=== PATIENT | female | born 1990 | race Caucasian/White ===

== ENCOUNTER 2016-08-05 12:29 | Inpatient (IN) | payer OTHER ==
[~2016-08-05] VITALS: Ht 165.1 cm; Wt 64.5 kg
[~2016-08-05 12:29] MED LIST: ASCORBIC ACID500 M1 PO; ORTHO TRI-CYCL1 EACH PO; PHENERGAN25 MG PR; TRAZODONE HCL50 MG PO
[2016-08-05 13:15] LABS: EOSINOPHIL (%) 1.1 % (0-5); EOSINOPHIL COUNT 0.1 K/uL (0-0.3); HEMATOCRIT 41.3 % (36.0-46.0); IMMATURE GRANULOCYTE (%) 0.6 % (0.0-0.7); IMMATURE GRANULOCYTE COUNT 0.1 K/uL; INSTRUMENT ABS NEUTROPHIL CT 5.2 K/uL; LYMPHOCYTE COUNT 2.6 K/uL (1.0-2.8); MCH 29.7 PG (29.0-34.0); MCHC 33.4 G/DL (30.0-36.0); MCV 88.8 FL (83-99); MEAN PLAT.VOLUME 9.3 uM^3 (9.5-12.4); MONOCYTE (%) 5.5 % (3-12); MONOCYTE COUNT 0.5 K/uL (0-0.8); NEUTROPHIL (%) 61.3 % (45-76); NEUTROPHIL COUNT 5.2 K/uL (1.8-6.4); PLATELET COUNT 334 K/uL (156-360); RBC DIS.WIDTH-CV 12.3 % (11.8-14.6); RBC DIS.WIDTH-SD 39.7 % (39-53); RED BLOOD COUNT 4.65 M/uL (3.80-5.20); WHITE BLOOD COUNT 8.4 K/uL (4.1-10.2)
[2016-08-05 13:25] LABS: CHLORIDE 107 mEq/L (99-109); POTASSIUM 4.4 mEq/L (3.7-5.4); SODIUM 142 mEq/L (136-147)
[2016-08-05 13:26] LABS: GLUCOSE 78 mg/dL (70-99)
[2016-08-05 13:28] LABS: ANION GAP 11 MEQ/L (2-14)
[2016-08-05 13:29] LABS: SERUM ETHYL ALCOHOL 51 mg/dL
[2016-08-05 13:30] LABS: GFR ESTIMATE (CALCULATED) > 59 mL/min/
[2016-08-05 13:31] LABS: UREA NITROGEN (BUN) 7 mg/dL (9-23)
[2016-08-05 13:45] LABS: QUANTITATIVE HCG < 4.0 MIU/ML
[2016-08-05 14:34] LABS: ADD MIUA? YES; BILIRUBIN NEGATIVE; BLOOD NEGATIVE; COLOR YELLOW ((YELLOW)); GLUCOSE (STRIP) NEGATIVE; KETONES NEGATIVE; LEUKOCYTES NEGATIVE; NITRITE NEGATIVE; PROTEIN (STRIP) NEGATIVE; SPECIFIC GRAVITY 1.017 (1.000-1.030); UROBILINOGEN 0.2 MG/DL (0.2-1.0)
[2016-08-05 14:47] LABS: AMPHETAMINE NEGATIVE (500 ng/mL); BARBITURATES NEGATIVE (200 ng/mL); BENZODIAZEPINES NEGATIVE (150 ng/mL); COCAINE NEGATIVE (150 ng/mL); INTERNAL CONTROLS VALID? YES; METHADONE NEGATIVE (200 ng/mL); METHAMPHETAMINE NEGATIVE (500 ng/mL); OPIATES (MORPHINE) NEGATIVE (100 ng/mL); OXYCODONE NEGATIVE (100 ng/mL); PHENCYCLIDINE NEGATIVE (25 ng/mL); PROPOXYPHENE NEGATIVE (300 ng/mL); THC CANNABINOIDS PRESUMPTIVE POSITIVE (50 ng/mL); TRICYCLIC ANTIDEPRESSANTS NEGATIVE (300 ng/mL)
[2016-08-05 14:48] LABS: ADD MEDTOX COMMENT Y
[2016-08-05 14:54] LABS: BACTERIA NONE SEEN /HPF; EPITHELIAL CELLS RARE /HPF; MUCUS TRACE /LPF; RED BLOOD CELLS 0-5 /HPF (0-5); WHITE BLOOD CELLS 0-5 /HPF (0-5)
[2016-08-05] MEDS ORDERED: ASCORBIC ACID500 M3 PO (14:59)
[2016-08-05 15:01] LABS: CASTS NONE SEEN /LPF; CRYSTALS NONE SEEN
[2016-08-05 16:39] VITALS: BP 144/78
[2016-08-06 09:34] VITALS: BP 127/66
[2016-08-06 15:56] VITALS: BP 117/63
[2016-08-07 08:05] VITALS: BP 122/68
[2016-08-07] MEDS ORDERED: SERTRALINE HCL50 MG PO (09:43)
== END 2016-08-07 13:28 | disposition home or self-care (01) | DRG 885 ==
LOC: EME 12:29 → EDOF 14:20 → 1WEST 14:20
PROVIDERS: Emergency Medicine
DX: F33.2 Major depressive disorder, recurrent severe without psychotic features (principal); R45.851 Suicidal ideations; Y90.2 Blood alcohol level of 40-59 mg/100 ml; F10.20 Alcohol dependence, uncomplicated; S61.512A Laceration without foreign body of left wrist, initial encounter; S61.511A Laceration without foreign body of right wrist, initial encounter; X78.1XXA Intentional self-harm by knife, initial encounter; F41.0 Panic disorder [episodic paroxysmal anxiety]; F12.90 Cannabis use, unspecified, uncomplicated; Z62.810 Personal history of physical and sexual abuse in childhood; Z91.410 Personal history of adult physical and sexual abuse; F17.210 Nicotine dependence, cigarettes, uncomplicated; Y92.9 Unspecified place or not applicable; Y93.E8 Activity, other personal hygiene
CPT/HCPCS: 80048; 81003; 84702; 84999; 85025; 90837; 99281; 99284; G0480; Q0177

== ENCOUNTER 2017-07-07 19:18 | Inpatient (IN) | payer OTHER ==
[~2017-07-07] VITALS: Ht 165.1 cm; Wt 69.5 kg
[~2017-07-07 19:18] MED LIST changes: +ASCORBIC ACID500 M3 PO; +SERTRALINE HCL50 MG PO
[2017-07-07 19:37] LABS: HEMOGLOBIN 13.9 G/DL (11.9-15.5); MCH 31.3 PG (29.0-34.0); MCHC 35.6 G/DL (30.0-36.0); MCV 87.8 FL (83-99); PLATELET COUNT 355 K/uL (156-360); RBC DIS.WIDTH-CV 12.5 % (11.8-14.6); RBC DIS.WIDTH-SD 40.3 % (39-53); RED BLOOD COUNT 4.44 M/uL (3.80-5.20); WHITE BLOOD COUNT 16.3 K/uL (4.1-10.2)
[2017-07-07 19:45] LABS: CHLORIDE 108 mEq/L (99-109); POTASSIUM 4.1 mEq/L (3.7-5.4); SODIUM 139 mEq/L (136-147)
[2017-07-07 19:47] LABS: GLUCOSE 117 mg/dL (70-99)
[2017-07-07 19:50] LABS: SERUM ETHYL ALCOHOL 201 mg/dL
[2017-07-07 19:51] LABS: CREATININE 0.9 mg/dL (0.6-1.3); GFR ESTIMATE (CALCULATED) > 59 mL/min/
[2017-07-07 19:53] LABS: UREA NITROGEN (BUN) 11 mg/dL (9-23)
[2017-07-07 19:54] LABS: ACETAMINOPHEN (TYLENOL) < 10 mcg/mL (10-30); SALICYLATE < 5.0 MG/DL (15-30)
[2017-07-07 21:03] LABS: AMPHETAMINE NEGATIVE (500 ng/mL); BARBITURATES NEGATIVE (200 ng/mL); BENZODIAZEPINES NEGATIVE (150 ng/mL); BUPRENORPHINE NEGATIVE (10 ng/mL); COCAINE NEGATIVE (150 ng/mL); METHADONE NEGATIVE (200 ng/mL); METHAMPHETAMINE NEGATIVE (500 ng/mL); OPIATES (MORPHINE) NEGATIVE (100 ng/mL); OXYCODONE NEGATIVE (100 ng/mL); PHENCYCLIDINE NEGATIVE (25 ng/mL); PROPOXYPHENE NEGATIVE (300 ng/mL); THC CANNABINOIDS NEGATIVE (50 ng/mL); TRICYCLIC ANTIDEPRESSANTS NEGATIVE (300 ng/mL)
[2017-07-08 03:44] VITALS: BP 136/82
[2017-07-08 08:07] VITALS: BP 119/58
[2017-07-08 16:20] VITALS: BP 154/79
[2017-07-09 07:46] VITALS: BP 120/67
[2017-07-09 15:45] VITALS: BP 139/68
[2017-07-10 07:32] VITALS: BP 133/76
[2017-07-10 15:36] VITALS: BP 105/65
[2017-07-11 07:30] VITALS: BP 119/65
[2017-07-11 15:37] VITALS: BP 133/66
[2017-07-12 07:47] VITALS: BP 106/59
[2017-07-12] MEDS ORDERED: FLUOXETINE HCL20 MG PO (09:35)
[2017-07-12] MEDS ORDERED: OLANZAPINE5 MG PO (09:35)
[2017-07-12] MEDS ORDERED: NALTREXONE HCL50 MG PO (09:37)
== END 2017-07-12 14:18 | disposition home or self-care (01) | DRG 876 ==
LOC: EME 19:18 → EDOF 07-08 00:43 → 1WEST 07-08 00:43 → ENRESERV 07-08 00:57 → 1WEST 07-08 03:29
PROVIDERS: Emergency Medicine
DX: F33.2 Major depressive disorder, recurrent severe without psychotic features (principal); F10.24 Alcohol dependence with alcohol-induced mood disorder; R45.851 Suicidal ideations; X78.8XXA Intentional self-harm by other sharp object, initial encounter; S61.512A Laceration without foreign body of left wrist, initial encounter; S41.112A Laceration without foreign body of left upper arm, initial encounter; S60.819A Abrasion of unspecified wrist, initial encounter; Y90.7 Blood alcohol level of 200-239 mg/100 ml; F10.229 Alcohol dependence with intoxication, unspecified; F17.210 Nicotine dependence, cigarettes, uncomplicated; F60.3 Borderline personality disorder; R45.850 Homicidal ideations; F41.9 Anxiety disorder, unspecified; Z62.810 Personal history of physical and sexual abuse in childhood; F12.10 Cannabis abuse, uncomplicated; Z91.5 Personal history of self-harm; Z78.1 Physical restraint status; Z59.0 Homelessness; Z91.14 Patient's other noncompliance with medication regimen; Z91.410 Personal history of adult physical and sexual abuse; Y92.009 Unspecified place in unspecified non-institutional (private) residence as the place of occurrence of the external cause; Z81.1 Family history of alcohol abuse and dependence
CPT/HCPCS: 80048; 85027; 90837; 97150 GO; 97165 GO; 99281; 99285; G0480; J1630; J2250; Q0177